=== PATIENT | male | born 1955 | race Caucasian/White ===

== ENCOUNTER → 2017-09-03 | Outpatient (CLI) | payer OTHER ==
[~2017-09-03] MED LIST: BACL20 PO; DOCU100 PO; GABA400 PO; GLYCAS PR; LIDO700A20 TOP; Lovenox100 MG/1 M SC; Mucinex600 MG PO; Norco 5-325 Ta1 EACH PO; Percocet 5-3251 EACH PO; Pseudoephedrine30 MG PO; WARF6 PO
[2017-09-05 14:17] LABS: Stool Occult Bld Immuno 1 Negative (NEGATIVE)
== END ==
LOC: LAB EV 19:00 → LAB SHORT 19:00
PROVIDERS: Internal Medicine
DX: Z12.11 Encounter for screening for malignant neoplasm of colon (principal)
CPT/HCPCS: G0328

== ENCOUNTER → 2017-12-21 | Outpatient (CLI) | payer OTHER | LOC: LAB EV 11:37 → LAB SHORT 11:37 | DX: N39.0 Urinary tract infection, site not specified (principal) | CPT/HCPCS: 87077; 87086; 87186 ==

== ENCOUNTER 2019-04-20 23:23 | Observation (INO) | payer OTHER ==
[~2019-04-20] VITALS: Ht 167.6 cm; Wt 113.3 kg
[2019-04-20] MEDS ORDERED: ELIQUIS5 MG PO (23:47)
[2019-04-21 00:12] LABS: BASOPHILS ABSOLUTE AUTO 0.05 K/mm3 (0.00-0.23); BASOPHILS PERCENT AUTO 1 % (0-2); EOSINOPHILS ABSOLUTE AUTO 0.13 K/mm3 (0.00-0.68); EOSINOPHILS PERCENT AUTO 2 % (0-6); Hematocrit 43.1 % (37.0-53.0); Hemoglobin 14.2 g/dL (13.5-17.5); IMMATURE GRAN ABSOLUTE AUTO 0.02 K/mm3 (0.00-0.10); IMMATURE GRAN PERCENT AUTO 0 % (0-1); LYMPHOCYTES PERCENT AUTO 22 % (21-46); MONOCYTES ABSOLUTE AUTO 0.58 K/mm3 (0.16-1.47); MONOCYTES PERCENT AUTO 7 % (4-13); Mean Corpuscular HGB 30.2 pg (26.0-34.0); Mean Corpuscular HGB Conc 32.9 g/dL (31.5-36.5); Mean Corpuscular Volume 92 fL (80-100); Mean Platelet Volume 10.5 fL (9.1-12.4); NEUTROPHILS ABSOLUTE AUTO 5.84 K/mm3 (1.96-9.15); NEUTROPHILS PERCENT AUTO 69 % (41-73); Platelet Count 280 K/mm3 (150-400); RDW Coefficient Variation 12.8 % (11.7-14.2); RDW Standard Deviation 42.9 fL (35.1-46.3); White Blood Cell Count 8.52 K/mm3 (4.00-11.30)
[2019-04-21 00:31] LABS: Alanine Aminotransfer (ALT/SGP 79 U/L (12-78); Albumin, Blood 3.7 g/dL (3.4-5.0); Albumin/Globulin Ratio 0.9 (0.8-1.8); Alk Phos 89 U/L (50-136); Anion Gap 7 mmol/L (6-16); Aspartate Aminotrans (AST/SGOT 33 U/L (12-37); Bilirubin, Total 0.3 mg/dL (0.1-1.0); Blood Urea Nitrogen 18 mg/dL (8-24); Bun/Creatinine Ratio 23.3 (12.0-20.0); CO2, Blood 25 mmol/L (21-32); Calcium, Blood 8.6 mg/dL (8.5-10.1); Chloride, Blood 108 mmol/L (98-108); Creatinine, Blood 0.77 mg/dL (0.60-1.20); Globulin, Blood 4.1 g/dL (2.2-4.0); Glomerular Filtration Rate >60 (60-); Glucose, Blood 158 mg/dL (70-99); Potassium, Blood 4.3 mmol/L (3.5-5.5); Sodium, Blood 140 mmol/L (136-145); Total Protein, Blood 7.8 g/dL (6.4-8.2)
--- NOTE | 2019-04-21 02:41 | NUR ---
PATIENT BEING ADMITTED FOR POSSIBLE GI BLEED. ARRIVED TO THE FLOOR VIA GURNEY, TRANSFERRED TO BED USING SLIDER SHEET. PATIENT REPORTS HE HAS BEEN HAVING CONSTIPATION DUE TO CHRONIC USE OF OXYCODONE. TONIGHT HE HAD A LARGE HARD BM AND AFTERWARDS HE NOTED TO HAVE BRIGHT RED BLOOD DRIPPING IN THE TOILET. UNABLE TO TELL HOW MUCH. NO BM SINCE THEN. PATIENT IS ON ELIQUIS FOR BLOOD CLOTS AND HAS HISTORY OF HEMMORROIDS. HE IS NOT SURE IF THAT COULD BE THE CAUSE OF IT. PATIENT IS A PARAPLEGIC FROM A FALL YEARS AGO, CAN NOT FEEL ANYTHING PAST HIS WAIST. HE IS STILL ABLE TO VOID AND USES THE URINAL. AND AT TIMES HE HAS BURNING LIKE SENSATIONS IN HIS LEGS AND FEET. PAIN ALSO FROM OLD NECK INJURY WELL. NO LUNG OR CARDIO ISSUES TO NOTE. GOT HIM SETTLED INTO THE ROOM, CALL LIGHT GIVEN, NO MEDS TO GIVE. PATIENT COVERED UP AND STARTED TO GO TO SLEEP.
--- NOTE | 2019-04-21 05:51 | NUR ---
SHIFT SUMMARY: CARMITA ARRIVED TO THE FLOOR AROUND 0230 THIS AM. HE WAS ADMITTED FOR POSSIBLE GI BLEED. HE HAS BEEN CONSTIPATED SINCE HE WAS PLACED ON NARCOTICS FOR CHRONIC BODY PAIN SINCE HIS INJURY. YESTERDAY HE HAD A BOWEL MOVEMENT NOTICED SOME BLOOD AFTERWARDS. HE IS ON ELEQUIS AND WAS CONCERNED SO HE CAME IN. SINCE HE HAS BEEN TO THE FLOOR HE HAS SLEPT, NO MEDS WERE GIVEN. NO ACTIVE BLEEDING NOTED. ALL LABS ARE WNL. VS ARE STABLE. HE HAS NOT HAD ANY ACUTE CHANGES SINCE HE WAS ADMITTED TO THE FLOOR. CALL LIGHT HAS REMAINED IN REACH.
[2019-04-21 12:33] LABS: Hematocrit 40.3 % (37.0-53.0); Hemoglobin 13.2 g/dL (13.5-17.5)
--- NOTE | 2019-04-21 19:31 | NUR ---
SHIFT SUMMARY: NO ACUTE CHANGES TO REPORT THIS SHIFT. PT A&O; CALM AND COOPERATIVE WITH CARE. PT PARAPLEGIC @ C-6; WHEELCHAIR BOUND AT BASELINE; MEDICATED FOR PAIN PER EMAR. GI CONSULT CANX R/T STABLE H&H; ADDITIONAL H&H SCHEDULED FOR 04/22. POSSIBLE D/C TO HOME 04/22. REPORT GIVEN TO ONCOMING RN.
--- NOTE | 2019-04-21 20:30 | NUR ---
NGHIA JUST HAD BM SOFT AND BROWN, NO BLOOD NOTED. STILL ON BED SNYDER HE THINKS HE MAY GO SOME MORE. URINAL ALSO EMPTIED AND PLACED BACK IN BETWEEN HIS LEGS LIKE HE REQUEST. STATES PAIN MEDS ARE DO AND WILL LIKE THEM WITH HIS NIGHT MEDS. 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 ENCOURAGED HIM TO CONTINUE TO WORK ON IT. CALL LIGHT IN REACH, WILL CONTINUE TO MONITOR.
--- NOTE | 2019-04-22 05:02 | NUR ---
SHIFT SUMMARY: NGHIA HAS DONE GOOD. BOWEL MOVEMENT TONIGHT WAS BROWN AND WITH NO SIGNS OF BLOOD. NO ABDOMINAL PAIN OR DISCOMFORT. NO NAUSEA NOTED. VS HAVE SHOWN A MILD TEMP OF 100.6 THAT CAME DOWN TO 99 AFTER PERCOCET. LUNG SOUNDS ARE CLEAR. LAB WORK IS NORMAL. NO SIGNS OF INFECTION NOTED. DENIES ANY CONGESTION OR COLD LIKE SYMPTOMS. UNSURE WHERE THE TEMP IS COMING FROM. REST OF VITALS NORMAL. APPETITE GOOD. VOIDING WELL. NO OTHER ACUTE CHANGES NOTE DTHIS SHIFT.
[2019-04-22 08:04] LABS: BASOPHILS ABSOLUTE AUTO 0.04 K/mm3 (0.00-0.23); BASOPHILS PERCENT AUTO 1 % (0-2); EOSINOPHILS ABSOLUTE AUTO 0.02 K/mm3 (0.00-0.68); EOSINOPHILS PERCENT AUTO 0 % (0-6); Hematocrit 40.9 % (37.0-53.0); Hemoglobin 13.3 g/dL (13.5-17.5); IMMATURE GRAN ABSOLUTE AUTO 0.01 K/mm3 (0.00-0.10); IMMATURE GRAN PERCENT AUTO 0 % (0-1); LYMPHOCYTES ABSOLUTE AUTO 1.23 K/mm3 (0.84-5.20); LYMPHOCYTES PERCENT AUTO 19 % (21-46); MONOCYTES ABSOLUTE AUTO 0.77 K/mm3 (0.16-1.47); MONOCYTES PERCENT AUTO 12 % (4-13); Mean Corpuscular HGB Conc 32.5 g/dL (31.5-36.5); Mean Corpuscular Volume 92 fL (80-100); Mean Platelet Volume 10.3 fL (9.1-12.4); NEUTROPHILS ABSOLUTE AUTO 4.49 K/mm3 (1.96-9.15); NEUTROPHILS PERCENT AUTO 68 % (41-73); Platelet Count 218 K/mm3 (150-400); RDW Coefficient Variation 13.1 % (11.7-14.2); RDW Standard Deviation 44.4 fL (35.1-46.3); Red Blood Cell Count 4.44 M/mm3 (4.30-5.90); White Blood Cell Count 6.56 K/mm3 (4.00-11.30)
--- NOTE | 2019-04-22 10:31 | NUR ---
REVIEW D'C INSTRUCTIONS. PER DR.STODDARD CARRILLORT JAN FRIDAY AND PATIENT AWARE. CORDINATOR WILL CALL THEM TODAY TO SET UP APPT AND IF THEY DO NOT THEY WILL CALL PCP TOMORROW. HAS F/U APPT IN 10 DAYS. AWARE CAN RETURN TO E.R. IF NEEDED. NO NEW MEDS. IN W/C. COIN MACHINE ASSEMBLER TOOK PATIENT TO POV W/. ANSWER ALL QUESTIONS.
== END 2019-04-22 10:31 | disposition home or self-care (01) ==
LOC: ER 23:23 → MEDS 23:25 → ER 04-21 01:07 → MEDS 04-21 01:07 → ER 04-21 02:28 → MEDS 04-21 02:34 → ENPENDDIS 04-22 09:17 → MEDS 04-22 10:31
PROVIDERS: Hospitalist; Physician Assistant; ADMIT Internal Medicine
DX: K62.5 Hemorrhage of anus and rectum (principal); K59.00 Constipation, unspecified; M54.9 Dorsalgia, unspecified; G89.29 Other chronic pain; G62.9 Polyneuropathy, unspecified; Z86.718 Personal history of other venous thrombosis and embolism; Z79.01 Long term (current) use of anticoagulants; Z79.899 Other long term (current) drug therapy
CPT/HCPCS: 36415; 80053; 85014; 85018; 85025; 93970; 99284; G0378

== ENCOUNTER 2020-01-25 17:39 | Inpatient (IN) | payer OTHER ==
[~2020-01-25] VITALS: Ht 167.6 cm; Wt 111.7 kg
[~2020-01-25 17:39] MED LIST changes: +ELIQUIS5 MG PO
[2020-01-25 18:02] LABS: Source, Urine Clean Catch
[2020-01-25 18:07] LABS: Bilirubin, Urine Neg (Neg); Blood, Urine 2+ (Neg); Glucose Qualitative, Urine Neg (Neg); Ketones, Urine Neg (Neg); Leukocyte Esterase, Urine 3+ (Neg); Nitrite, Urine Neg (Neg); Protein, Urine 2+ (Neg); Urobilinogen, Urine NORM (Normal)
[2020-01-25 18:14] LABS: BASOPHILS ABSOLUTE AUTO 0.03 K/mm3 (0.00-0.23); BASOPHILS PERCENT AUTO 0 % (0-2); EOSINOPHILS ABSOLUTE AUTO 0.02 K/mm3 (0.00-0.68); EOSINOPHILS PERCENT AUTO 0 % (0-6); Hematocrit 40.6 % (37.0-53.0); Hemoglobin 12.8 g/dL (13.5-17.5); IMMATURE GRAN ABSOLUTE AUTO 0.09 K/mm3 (0.00-0.10); IMMATURE GRAN PERCENT AUTO 1 % (0-1); LYMPHOCYTES ABSOLUTE AUTO 0.91 K/mm3 (0.84-5.20); LYMPHOCYTES PERCENT AUTO 5 % (21-46); MONOCYTES ABSOLUTE AUTO 1.53 K/mm3 (0.16-1.47); MONOCYTES PERCENT AUTO 8 % (4-13); Mean Corpuscular HGB Conc 31.5 g/dL (31.5-36.5); Mean Corpuscular Volume 86 fL (80-100); Mean Platelet Volume 10.2 fL (9.1-12.4); NEUTROPHILS ABSOLUTE AUTO 15.94 K/mm3 (1.96-9.15); NEUTROPHILS PERCENT AUTO 86 % (41-73); Platelet Count 277 K/mm3 (150-400); RDW Coefficient Variation 14.8 % (11.7-14.2); RDW Standard Deviation 46.5 fL (35.1-46.3); Red Blood Cell Count 4.74 M/mm3 (4.30-5.90); White Blood Cell Count 18.52 K/mm3 (4.00-11.30)
[2020-01-25 18:14] LABS: Appearance, Urine Hazy (Clear); Color, Urine Yellow (P-Yellow)
[2020-01-25 18:16] LABS: Bacteria Few /hpf; Squamous Epithelial Cells Few /hpf (Few); White Blood Cells, Urine 25-50 /hpf (0-5)
[2020-01-25 18:31] LABS: Alanine Aminotransfer (ALT/SGP 29 U/L (12-78); Albumin, Blood 3.5 g/dL (3.4-5.0); Albumin/Globulin Ratio 0.8 (0.8-1.8); Alk Phos 86 U/L (50-136); Anion Gap 5 mmol/L (6-16); Aspartate Aminotrans (AST/SGOT 17 U/L (12-37); Bilirubin, Total 0.7 mg/dL (0.1-1.0); Blood Urea Nitrogen 14 mg/dL (8-24); Bun/Creatinine Ratio 17.6 (12.0-20.0); CO2, Blood 30 mmol/L (21-32); Calcium, Blood 8.8 mg/dL (8.5-10.1); Chloride, Blood 103 mmol/L (98-108); Creatinine, Blood 0.79 mg/dL (0.60-1.20); Globulin, Blood 4.5 g/dL (2.2-4.0); Glomerular Filtration Rate >60 (60-); Glucose, Blood 146 mg/dL (70-99); Sodium, Blood 138 mmol/L (136-145)
[2020-01-25] MEDS ORDERED: BUPIVACAIN IJ (19:35)
[2020-01-25] MEDS ORDERED: METF500 (19:37)
[2020-01-25] MEDS ORDERED: DULO60 PO (22:58)
[2020-01-26 03:35] LABS: BASOPHILS ABSOLUTE AUTO 0.04 K/mm3 (0.00-0.23); BASOPHILS PERCENT AUTO 0 % (0-2); EOSINOPHILS ABSOLUTE AUTO 0.02 K/mm3 (0.00-0.68); EOSINOPHILS PERCENT AUTO 0 % (0-6); Hematocrit 38.9 % (37.0-53.0); Hemoglobin 11.8 g/dL (13.5-17.5); IMMATURE GRAN PERCENT AUTO 1 % (0-1); LYMPHOCYTES PERCENT AUTO 6 % (21-46); MONOCYTES ABSOLUTE AUTO 2.38 K/mm3 (0.16-1.47); MONOCYTES PERCENT AUTO 12 % (4-13); Mean Corpuscular HGB 26.9 pg (26.0-34.0); Mean Corpuscular HGB Conc 30.3 g/dL (31.5-36.5); Mean Corpuscular Volume 89 fL (80-100); Mean Platelet Volume 10.2 fL (9.1-12.4); NEUTROPHILS ABSOLUTE AUTO 16.45 K/mm3 (1.96-9.15); NEUTROPHILS PERCENT AUTO 82 % (41-73); Platelet Count 223 K/mm3 (150-400); RDW Standard Deviation 49.3 fL (35.1-46.3); Red Blood Cell Count 4.38 M/mm3 (4.30-5.90); White Blood Cell Count 20.09 K/mm3 (4.00-11.30)
[2020-01-26 03:57] LABS: Anion Gap 5 mmol/L (6-16); Blood Urea Nitrogen 14 mg/dL (8-24); Bun/Creatinine Ratio 15.7 (12.0-20.0); CO2, Blood 27 mmol/L (21-32); Calcium, Blood 7.8 mg/dL (8.5-10.1); Chloride, Blood 103 mmol/L (98-108); Creatinine, Blood 0.89 mg/dL (0.60-1.20); Glomerular Filtration Rate >60 (60-); Glucose, Blood 136 mg/dL (70-99); Potassium, Blood 4.3 mmol/L (3.5-5.5); Sodium, Blood 135 mmol/L (136-145)
--- NOTE | 2020-01-26 05:56 | NUR ---
shift summary PT SLEEPING IN ROOM COMFORTABLY AT THIS TIME. NO ACUTE CHANGES IN STATUS SINCE ARRIVAL FROM ED. PT HAS BEEN MEDICATED TWICE FOR PAIN PER EMAR. DENIED ANY CP OR SOB. PT WAS PLACED ON 1-2L NC BY RESP THERAPY D/T SLIGHTLY LOWER SATS UPON ARRIVAL. PT NOW SATTING 95% ON 1.5L. NS INFUSING IN PIV AT 75ML/HR. PT SELF CATHS AT HOME. STRAIGHT CATH DONE THIS AM, PT VOIDED 290ML. PT ALSO HAD ONE INCONTINENT VOID PRIOR TO SELF CATH. DENIED OTHER NEEDS. PT RESTING COMFORTABLY AT THIS TIME. CALL LIGHT IN REACH.
--- NOTE | 2020-01-26 16:53 | NUR ---
SHIFT SUMMARY PT A&Ox3; CALM AND COOPERATIVE WITH CARE. PT RESTING IN BED. ASSIST WITH REPOSITIONING; REFUSES MOST OF THE TIME. PT REPORTS CHRONIC PAIN; MEDICATED PER SCHEDULED AND PRN ORDERS. PT ON 2L O2 VIA NC THIS AM, TITRATED TO RA, PT DESATURATES TO 85%; PT MAINTAINING >90% ON 1L O2 VIA NC. PT DENIES CHEST PAIN, NAUSEA AND DIZZINESS. PT RECEIVING IV ANTIBIOTICS. HYPOTENSIVE THIS AM; TRENDING UP. OTHER VSS. NO OTHER ACUTE CHANGES NOTED. WILL CONTINUE TO MONITOR UNITL REPORT GIVEN TO ONCOMING RN.
--- NOTE | 2020-01-27 08:00 | NUR ---
PT LAYING IN BED AWAKE A/OX3, PLEASANT AND COOPERATIVE WITH CARE, FOLLOWS COMMANDS WELL, REPORTS HE SLEPT OK LAST NIGHT, REPORTS PAIN 8/10 IN HIS LEGS, WILL GIVE HIM A PERCOCET WITH AM MEDS, HE ALSO HAS A PAIN PUMP, LUNGS ARE CLEAR DIM IN BASES, RESP EVEN AND UNLABORED, NO COUGH NOTED, HRR, TELE IN PLACE RUNNING SR PER MONITOR, SEE STRIP, 2+ EDEMA NOTED TO B/L LE, UNABLE TO MOVE LEGS, CAP REFILL <3SEC, VS STABLE, AFEBRILE, IV SITE IS CLEAR AND PATENT, BTX4, ABD FLAT SOFT NONTENDER, VOIDS VIA SELF CATH, SKIN C/W/D, MOVES UPPER BODY WELL, FOUZIA, CALL LIGHT IN REACH.
[2020-01-27 12:45] LABS: BASOPHILS ABSOLUTE AUTO 0.02 K/mm3 (0.00-0.23); BASOPHILS PERCENT AUTO 0 % (0-2); EOSINOPHILS ABSOLUTE AUTO 0.11 K/mm3 (0.00-0.68); EOSINOPHILS PERCENT AUTO 1 % (0-6); Hematocrit 36.4 % (37.0-53.0); Hemoglobin 11.1 g/dL (13.5-17.5); IMMATURE GRAN ABSOLUTE AUTO 0.06 K/mm3 (0.00-0.10); IMMATURE GRAN PERCENT AUTO 1 % (0-1); LYMPHOCYTES ABSOLUTE AUTO 1.32 K/mm3 (0.84-5.20); LYMPHOCYTES PERCENT AUTO 10 % (21-46); MONOCYTES ABSOLUTE AUTO 1.43 K/mm3 (0.16-1.47); MONOCYTES PERCENT AUTO 11 % (4-13); Mean Corpuscular HGB 27.1 pg (26.0-34.0); Mean Corpuscular HGB Conc 30.5 g/dL (31.5-36.5); Mean Corpuscular Volume 89 fL (80-100); Mean Platelet Volume 10.1 fL (9.1-12.4); NEUTROPHILS ABSOLUTE AUTO 9.74 K/mm3 (1.96-9.15); NEUTROPHILS PERCENT AUTO 77 % (41-73); Platelet Count 224 K/mm3 (150-400); RDW Standard Deviation 48.9 fL (35.1-46.3); White Blood Cell Count 12.68 K/mm3 (4.00-11.30)
--- NOTE | 2020-01-27 13:44 | NUR ---
pt was up to bathroom to try to have a bm, was unable even after a suppos. got him started on miralax, will give enema if needed. v.s. stable, no further needs at this time, call light in reach.
--- NOTE | 2020-01-27 14:28 | NUR ---
pt sleeping, will given meds when wakes up. call light in reach.
--- NOTE | 2020-01-27 18:06 | NUR ---
pt has not been able to move bowels yet. have offered him a enema, and started him on mom and miralax, no further changes. call light in reach.
[2020-01-28 04:31] LABS: Hematocrit 32.8 % (37.0-53.0); Hemoglobin 10.1 g/dL (13.5-17.5); Mean Corpuscular HGB 26.9 pg (26.0-34.0); Mean Corpuscular HGB Conc 30.8 g/dL (31.5-36.5); Mean Corpuscular Volume 88 fL (80-100); Platelet Count 242 K/mm3 (150-400); RDW Coefficient Variation 14.9 % (11.7-14.2); RDW Standard Deviation 47.9 fL (35.1-46.3); Red Blood Cell Count 3.75 M/mm3 (4.30-5.90); White Blood Cell Count 13.56 K/mm3 (4.00-11.30)
--- NOTE | 2020-01-28 06:02 | NUR ---
SHIFT SUMMARY PT SLEEPING IN ROOM COMFORTABLY AT THIS TIME. NO ACUTE CHANGES IN STATUS T/O NIGHT. PT SLEPT WELL AND DENIED NEEDS T/O NIGHT. PT DID NOT ASK FOR ANY PAIN MEDS T/O NIGHT. SATS >92% ON RA. PT GOT UP ONCE TO BSC WITH SLIDER BOARD TO ATTEMPT BM. PT REPORTS LOTS OF FLATULENCE BUT NO BM OF YET. OFFERED FLEET ENEMA, PT DECLINED AT THIS TIME. CALL LIGHT IN REACH.
--- NOTE | 2020-01-28 18:34 | NUR ---
PATIENT'S BP TRENDED UPWARD THIS SHIFT, PATIENT DENIED CHEST PAIN. MAINTENANCE FLUIDS DISCONTINUED, IV LASIX GIVEN PER DR. SALINAS. COPMLAINED OF CHRONIC LOWBACK AND LEG PAIN. BLOOD SUGAR WNL, NO INSULIN NEEDED. PATIENT WAS ABLE TO PASS GAS MOST OF SHIFT, ABDOMINAL XRAY SHOWED NO SIGNS OF BOWEL OBSTRUCTION, PATIENT ABLE TO HAVE MEDIUM FORMED BOWEL MOVEMENT END OF THIS SHIFT.
--- NOTE | 2020-01-29 00:44 | NUR ---
Patient arrived from PCU 13 to room 313 on medical floor. A&OX4, transferred from wheelchair with slideboard without difficulty.
--- NOTE | 2020-01-29 04:06 | NUR ---
Patient converted to A Fib RVR in the 150's per PCU air technician at 0355. Call placed to night hospitalist. By 0405, A Fib rate is 140's 150's. Orders for lopressor received. will administer stat.
[2020-01-29 05:23] LABS: BASOPHILS ABSOLUTE AUTO 0.04 K/mm3 (0.00-0.23); BASOPHILS PERCENT AUTO 0 % (0-2); EOSINOPHILS ABSOLUTE AUTO 0.18 K/mm3 (0.00-0.68); EOSINOPHILS PERCENT AUTO 2 % (0-6); Hematocrit 35.7 % (37.0-53.0); Hemoglobin 11.3 g/dL (13.5-17.5); IMMATURE GRAN ABSOLUTE AUTO 0.04 K/mm3 (0.00-0.10); IMMATURE GRAN PERCENT AUTO 0 % (0-1); LYMPHOCYTES ABSOLUTE AUTO 1.36 K/mm3 (0.84-5.20); LYMPHOCYTES PERCENT AUTO 13 % (21-46); MONOCYTES PERCENT AUTO 12 % (4-13); Mean Corpuscular HGB 26.7 pg (26.0-34.0); Mean Corpuscular HGB Conc 31.7 g/dL (31.5-36.5); Mean Corpuscular Volume 84 fL (80-100); Mean Platelet Volume 10.4 fL (9.1-12.4); NEUTROPHILS PERCENT AUTO 73 % (41-73); Platelet Count 291 K/mm3 (150-400); RDW Coefficient Variation 14.7 % (11.7-14.2); RDW Standard Deviation 45.2 fL (35.1-46.3); Red Blood Cell Count 4.24 M/mm3 (4.30-5.90); White Blood Cell Count 10.32 K/mm3 (4.00-11.30)
[2020-01-29 05:42] LABS: Albumin, Blood 2.8 g/dL (3.4-5.0); Anion Gap 7 mmol/L (6-16); Blood Urea Nitrogen 12 mg/dL (8-24); Bun/Creatinine Ratio 17.5 (12.0-20.0); CO2, Blood 30 mmol/L (21-32); Calcium, Blood 9.4 mg/dL (8.5-10.1); Chloride, Blood 102 mmol/L (98-108); Creatinine, Blood 0.69 mg/dL (0.60-1.20); Glomerular Filtration Rate >60 (60-); Glucose, Blood 128 mg/dL (70-99); Phosphorus, Blood 2.7 mg/dL (2.5-4.9); Potassium, Blood 3.5 mmol/L (3.5-5.5); Sodium, Blood 139 mmol/L (136-145)
--- NOTE | 2020-01-29 06:06 | NUR ---
REGULATORY SUBMISSIONS ASSOCIATE SUMMARY Patient arrived from PCU just after 0100. Pain was 8/10 at that time, and Q6 PRN percocet was given per emar. Around 0350, patient converted into A Fib in the 150's. was notified and 2 - 5mg doses of Lopressor were given 30 minutes apart. First dose brought rate down to the 90'105 range going back and forth between SR and AF. The following dose was given because rate began creeping into the 120's A Fib again. Currently, patient is primarily SR between 90 and 100. Patient is unsure of the status of his pain pump, and was thinking his medication may have been increased without his knowledge. Phone numbers for [facility] are in pocket in from of chart. [place] and he says he was told by rep from the clinic that we (this [facility]) could adjust it or remove medications. Will make sure oncoming RN is aware of situation. Patient is voiding large quantities of urine per night time urinal. Urine is clear, odorless and yellow.
--- NOTE | 2020-01-29 17:09 | NUR ---
Echocardiogram completed.
--- NOTE | 2020-01-29 18:38 | NUR ---
SHIFT SUMMARY- PT IS A/O, PLESANT AND COOPERATIVE. HE IS RECIEVING PAIN MEDICATION NEEDED. HE IS EATING AND DRINKING WELL. PT STRAIGHT CATH HIMSELF. HE RECIEVED AN ECO AND AN EKG TODAY. VIA TELLE HE WAS HAVING ESCAPED BEATS AND PVC AND CONVERTED TO SINUS AT APPROX 1300 TODAY.
[2020-01-30] MEDS ORDERED: METO25ER PO (12:26)
[2020-01-30] MEDS ORDERED: CEFD300 PO (12:26)
--- NOTE | 2020-01-30 15:04 | NUR ---
PT DISCHARGED FROM THE UNIT. IV REMOVED. DISCHARGE INSTRUCTIONS REVIEWED. MEDICATONS FAXED TO [facility]. INSTRUCTED ON SCHEDULING FOLLOW UP APTS
== END 2020-01-30 13:55 | disposition home or self-care (01) | DRG 698 ==
LOC: ER 17:39 → PCU 22:17 → MEDS 01-29 00:45
PROVIDERS: Emergency Medicine; Family Medicine; Internal Medicine; Nurse Practitioner Acute Care; ADMIT Internal Medicine
DX: T83.518A Infection and inflammatory reaction due to other urinary catheter, initial encounter (principal); A41.59 Other Gram-negative sepsis; G82.20 Paraplegia, unspecified; N39.0 Urinary tract infection, site not specified; G89.29 Other chronic pain; M54.9 Dorsalgia, unspecified; E66.9 Obesity, unspecified; Z68.38 Body mass index [BMI] 38.0-38.9, adult; N31.9 Neuromuscular dysfunction of bladder, unspecified; I48.0 Paroxysmal atrial fibrillation; K59.03 Drug induced constipation; T40.605A Adverse effect of unspecified narcotics, initial encounter; Y92.9 Unspecified place or not applicable; Z86.718 Personal history of other venous thrombosis and embolism; E11.40 Type 2 diabetes mellitus with diabetic neuropathy, unspecified; Z97.8 Presence of other specified devices; Z79.84 Long term (current) use of oral hypoglycemic drugs; S14.109S Unspecified injury at unspecified level of cervical spinal cord, sequela
CPT/HCPCS: 36415; 71046; 72129; 72132; 74018; 76705; 80048; 80053; 80069; 81001; 82947; 83605; 85025; 85027; 87040; 87077; 87086; 87186; 93005; 93010; 93306; 94762; 96365; 96375; 99284-25; A9270; A9270-GY; J0696; J1170; J1940; J1956; J2405; J7030; Q9967

== ENCOUNTER 2020-03-08 08:38 | Inpatient (IN) | payer OTHER ==
[~2020-03-08] VITALS: Ht 167.6 cm; Wt 105.6 kg
[~2020-03-08 08:38] MED LIST changes: +BUPIVACAIN IJ; +CEFD300 PO; +DULO60 PO; +METF500; +METO25ER PO
[2020-03-08 10:05] LABS: Chloride (POC) 102 mmol/L (98-108); Creatinine (POC) 1.7 mg/dL (0.8-1.3); Glucose (ISTAT POC) 127 mg/dL (70-99); Hemoglobin (POC) 9.9 g/dL (13.5-17.5); Potassium (POC) 4.8 mmol/L (3.5-5.5); Sodium (POC) 138 mmol/L (135-148); Total CO2 (POC) 25 mmol/L (21-32)
[2020-03-08 10:55] LABS: BASOPHILS ABSOLUTE AUTO 0.05 K/mm3 (0.00-0.23); BASOPHILS PERCENT AUTO 1 % (0-2); EOSINOPHILS ABSOLUTE AUTO 0.11 K/mm3 (0.00-0.68); EOSINOPHILS PERCENT AUTO 1 % (0-6); Hematocrit 29.9 % (37.0-53.0); IMMATURE GRAN ABSOLUTE AUTO 0.04 K/mm3 (0.00-0.10); IMMATURE GRAN PERCENT AUTO 0 % (0-1); LYMPHOCYTES ABSOLUTE AUTO 1.66 K/mm3 (0.84-5.20); LYMPHOCYTES PERCENT AUTO 18 % (21-46); MONOCYTES ABSOLUTE AUTO 0.64 K/mm3 (0.16-1.47); MONOCYTES PERCENT AUTO 7 % (4-13); Mean Corpuscular HGB 26.3 pg (26.0-34.0); Mean Corpuscular HGB Conc 30.1 g/dL (31.5-36.5); Mean Corpuscular Volume 87 fL (80-100); Mean Platelet Volume 10.2 fL (9.1-12.4); NEUTROPHILS ABSOLUTE AUTO 6.53 K/mm3 (1.96-9.15); NEUTROPHILS PERCENT AUTO 72 % (41-73); Platelet Count 318 K/mm3 (150-400); RDW Coefficient Variation 15.2 % (11.7-14.2); RDW Standard Deviation 49.3 fL (35.1-46.3); Red Blood Cell Count 3.42 M/mm3 (4.30-5.90); White Blood Cell Count 9.03 K/mm3 (4.00-11.30)
[2020-03-08 11:12] LABS: International Normalized Ratio 1.04; Prothrombin Time Results 11.1 Sec (9.7-11.5)
[2020-03-08 11:15] LABS: Albumin, Blood 3.1 g/dL (3.4-5.0); Albumin/Globulin Ratio 0.8 (0.8-1.8); Bilirubin, Total 0.3 mg/dL (0.1-1.0); Bun/Creatinine Ratio 17.6 (12.0-20.0); Calcium, Blood 8.8 mg/dL (8.5-10.1); Creatinine, Blood 1.48 mg/dL (0.60-1.20); Globulin, Blood 3.8 g/dL (2.2-4.0); Potassium, Blood 4.9 mmol/L (3.5-5.5); Total Protein, Blood 6.9 g/dL (6.4-8.2)
[2020-03-08] MEDS ORDERED: ELIQUIS5 M3 PO (12:18)
[2020-03-08] MEDS ORDERED: OXYC5 PO (12:18)
[2020-03-08] MEDS ORDERED: NEURONTIN400 M1 PO (12:18)
[2020-03-08] MEDS ORDERED: METOPROLOL SUCC25 MG PO (12:18)
[2020-03-08] MEDS ORDERED: BACL20 PO (12:18)
[2020-03-08] MEDS ORDERED: LISI20 PO (12:19)
[2020-03-08] MEDS ORDERED: DULOXETINE HCL60 M1 PO (12:19)
[2020-03-08] MEDS ORDERED: METFORMIN HCL1000 M5 PO (12:19)
[2020-03-08 13:28] LABS: Source, Urine Catheter
[2020-03-08 13:55] LABS: Appearance, Urine Clear (Clear); Bilirubin, Urine Neg (Neg); Blood, Urine Neg (Neg); Color, Urine Yellow (P-Yellow); Glucose Qualitative, Urine Neg (Neg); Ketones, Urine Neg (Neg); Leukocyte Esterase, Urine 1+ (Neg); Nitrite, Urine Neg (Neg); Protein, Urine Neg (Neg); Urobilinogen, Urine NORM (Normal)
[2020-03-08 14:18] LABS: Hyaline Casts Rare /lpf (0-2); Red Blood Cells, Urine 0-2 /hpf (0-2); Squamous Epithelial Cells Few /hpf (Few); White Blood Cells, Urine 0-2 /hpf (0-5)
[2020-03-08 14:38] LABS: Hematocrit 27.3 % (37.0-53.0); Hemoglobin 8.5 g/dL (13.5-17.5)
[2020-03-08 15:58] LABS: Bacteria Few /hpf
[2020-03-08 20:48] LABS: Hematocrit 28.3 % (37.0-53.0); Hemoglobin 8.6 g/dL (13.5-17.5)
--- NOTE | 2020-03-08 22:28 | NUR ---
PATIENT WAS ON THE COMMODE AND HAD A BLOOD PRESSURE OF 68/44 WHILE ON THE COMMODE. PRINT COLOR OPERATOR AND THIS RN ASSISTED THE PATIENT BACK INTO BED AND RE-TOOK HIS BLOOD PRESSURE AND IT HAD COME UP TO 101/56. IN THE COMMODE WAS A LARGE AMOUNT OF WHAT APPEARED TO BE CONGEALED BLOOD. THIS RN CONTACTED THE LOCOMOTIVE ENGINEER DIESEL PHYSICIAN, DR KAHN, AND NOTIFIED HIM OF THE SITUATION. DR KAHN ORDERED A STAT CBC AND VITALS Q4 HOURS. WILL CONTINUE TO MONITOR.
[2020-03-08 22:43] LABS: BASOPHILS ABSOLUTE AUTO 0.04 K/mm3 (0.00-0.23); BASOPHILS PERCENT AUTO 1 % (0-2); EOSINOPHILS ABSOLUTE AUTO 0.15 K/mm3 (0.00-0.68); EOSINOPHILS PERCENT AUTO 2 % (0-6); Hematocrit 27.5 % (37.0-53.0); Hemoglobin 8.5 g/dL (13.5-17.5); IMMATURE GRAN ABSOLUTE AUTO 0.02 K/mm3 (0.00-0.10); IMMATURE GRAN PERCENT AUTO 0 % (0-1); LYMPHOCYTES ABSOLUTE AUTO 2.15 K/mm3 (0.84-5.20); LYMPHOCYTES PERCENT AUTO 25 % (21-46); MONOCYTES ABSOLUTE AUTO 0.73 K/mm3 (0.16-1.47); MONOCYTES PERCENT AUTO 9 % (4-13); Mean Corpuscular HGB 27.1 pg (26.0-34.0); Mean Corpuscular HGB Conc 30.9 g/dL (31.5-36.5); Mean Corpuscular Volume 88 fL (80-100); NEUTROPHILS ABSOLUTE AUTO 5.46 K/mm3 (1.96-9.15); NEUTROPHILS PERCENT AUTO 64 % (41-73); Platelet Count 323 K/mm3 (150-400); RDW Coefficient Variation 15.1 % (11.7-14.2); RDW Standard Deviation 48.5 fL (35.1-46.3); Red Blood Cell Count 3.14 M/mm3 (4.30-5.90); White Blood Cell Count 8.55 K/mm3 (4.00-11.30)
[2020-03-09 02:35] LABS: Hematocrit 27.2 % (37.0-53.0); Hemoglobin 8.4 g/dL (13.5-17.5)
[2020-03-09 02:53] LABS: Alanine Aminotransfer (ALT/SGP 24 U/L (12-78); Albumin/Globulin Ratio 0.8 (0.8-1.8); Alk Phos 73 U/L (50-136); Anion Gap 3 mmol/L (6-16); Aspartate Aminotrans (AST/SGOT 18 U/L (12-37); Bilirubin, Total 0.2 mg/dL (0.1-1.0); Blood Urea Nitrogen 22 mg/dL (8-24); Bun/Creatinine Ratio 21.2 (12.0-20.0); CO2, Blood 30 mmol/L (21-32); Calcium, Blood 8.8 mg/dL (8.5-10.1); Chloride, Blood 109 mmol/L (98-108); Creatinine, Blood 1.04 mg/dL (0.60-1.20); Globulin, Blood 3.7 g/dL (2.2-4.0); Glomerular Filtration Rate >60 (60-); Glucose, Blood 136 mg/dL (70-99); Potassium, Blood 4.5 mmol/L (3.5-5.5); Sodium, Blood 142 mmol/L (136-145); Total Protein, Blood 6.7 g/dL (6.4-8.2)
--- NOTE | 2020-03-09 07:26 | NUR ---
SHIFT SUMMARY PATIENT ALERT AND ORIENTED. PATIENT HAD EPISODES OF LOW BP WITH DIZZINESS, ESPECIALLY WHEN HE WAS ON THE COMMODE HAVING A BOWEL MOVEMENT. BP CURRENTLY BACK TO NORMAL. PATIENT MEDICATED PER EMAR FOR PAIN HE HAS PERIPHERAL NEUROPATHY. PT COMPLAINED OF CONSTIPATION AND ASKED IF HE COULD HAVE A SUPPOSITORY ORDERED, CALLED DR RUGGIERO AND HE ORDERED DULCOLAX HI. IV PATENT AND INFUSING WITH NORMAL SALINE AT 100 ML/HR. BED IN LOWEST POSITION WITH WHEELS LOCKED. CALL LIGHT WITHIN REACH. REPORT GIVEN TO ONCOMING RN.
[2020-03-09 09:15] LABS: Hemoglobin 8.6 g/dL (13.5-17.5)
[2020-03-09 11:39] LABS: Influenza A, PCR Negative (NEGATIVE); Influenza B, PCR Negative (NEGATIVE); Resp Syncytial Virus, PCR Negative (NEGATIVE); SARS-Cov-2 (COVID-19) PCR, MMC Negative (NEGATIVE)
--- NOTE | 2020-03-09 17:39 | NUR ---
SHIFT SUMMARY PATIENT ALERT AND ORIENTED THROUGHOUT THIS SHIFT. PATIENT COOPERATIVE WITH CARE. PATIENT IS PARAPLEGIC. RECTAL TUBE PLACED THIS AM FOR PATIENT'S GOLYTELY PREPARATION. PATIENT COMPLETED THE GOLYTELY THIS AFTERNOON AND IS CURRENTLY AWAITING HIS COLONOSCOPY. PATIENT MEDICATED FOR CHRONIC PAIN THROUGHOUT THIS SHIFT. PATIENT'S IN THE ROOM THROUGHOUT THIS AFTERNOON.
--- NOTE | 2020-03-09 19:24 | NUR ---
PT TRANSFERED TO [facility] VIA GURNY FROM [facility]. History, Chart, Medications and Allergies reviewed before start of procedure. Lungs clear T/O to Auscultation. Patient confirms NPO status and agrees with scheduled surgery. Pre-Op teaching done. Pt verbalizes understanding.
--- NOTE | 2020-03-09 19:34 | NUR ---
03/09/201933 SAMIRA MCFARLAND History, Chart, Medications and Allergies reviewed before start of procedure. 3-LEAD EKG REVIEWED WITH PHYSICIAN PRIOR TO START OF PROCEDURE. O2 VIA N/C INTACT THROUGHOUT SEDATION/PROCEDURE. MONITOR INTACT WITH CONTINUOUS PULSE OXIMETRY AND INTERMITTENT BP. PATIENT DETERMINED TO BE ASA APPROPRIATE FOR PROPOFOL SEDATION PRIOR TO START OF PROCEDURE BY DR. ABRAMS
--- NOTE | 2020-03-10 00:17 | NUR ---
03/09/200 RETURNED FROM COLONOSCOPY VIA GUERNEY AND SLID TO BED. TALKATIVE AND CHEERFUL. HELPS WITH TURNING EVEN THOUGH PARAPLEGIC. VITALS STABLE AND FLUIDS GIVEN TO DRINK.
--- NOTE | 2020-03-10 03:02 | NUR ---
03/10/20 0255 PAIN PILL DROPPED BY PT ONTO BED BUT RN AND PT UNABLE TO FIND WHITE PILL IN WHITE LINEN. ANOTHER PILL GIVEN FOR PAIN.
--- NOTE | 2020-03-10 06:13 | NUR ---
03/10/20 0600 AWAKE FOR AM BLOOD SUGAR CHECK AND EMPTYING HIS "URINE BOTTLE". VOIDING WELL. VITALS STABLE. MEDICATED FOR STARR. LEG PAIN PER MAR. NO RECTAL BLEEDING NOTED. FRUSTRATED WITH PAIN PUMP HE HAS AND PLANS TO TALK WITH MD TODAY ABOUT IT.
[2020-03-10 06:37] LABS: Hematocrit 24.7 % (37.0-53.0); Hemoglobin 7.8 g/dL (13.5-17.5)
--- NOTE | 2020-03-10 08:20 | NUR ---
FULL LIQUID DIET ORDERED AT PATIENT REQUEST.
--- NOTE | 2020-03-10 14:42 | NUR ---
HOLDING DC PER DR. HERNANDEZ. SPOKE WITH HER ABOUT PATIENT NOT FEELING READY TO GO HOME TODAY AND THAT DR. ABRAMS TOLD HIM THAT HE WOULD BE STAYING ANOTHER NIGHT.
--- NOTE | 2020-03-10 17:25 | NUR ---
PATIENT A/OX4. ABLE TO WORK WITH PT TODAY AND IS ABLE TO STAND AND TRANSFER WITH GB, FWW AND ASSIST. PATIENT REPORTS SEVERE BACK AND BLE PAIN. MORPHINE PAIN PUMP IN PLACE WHICH PATIENT STATES "DOESN'T WORK" AND HAS MADE HIS SYMPTOMS WORSE SINCE PLACE. PERCOCET AND TRAMADOL GIVEN WITH MINIMAL RELIEF. PATIENT STRAIGHT CATHS PRN AT HOME AND HAS BEEN VOIDING WELL IN URINAL HERE. BLOOD SUGARS HAVE BEEN D/C'D AND PATIENT IS TOLERATING ADA, LOW NA+ DIET. DC ORDERS PLACED TODAY, BUT DR. ABRAMS WANTED PATIENT TO STAY ANOTHER NIGHT. PATIENT PLEASANT AND COOPERATIVE WITH SHIFT.
[2020-03-11 04:47] LABS: Hematocrit 26.9 % (37.0-53.0); Hemoglobin 8.1 g/dL (13.5-17.5)
--- NOTE | 2020-03-11 06:20 | NUR ---
SHIFT SUMMARY PATIENT ALERT AND ORIENTED. MEDICATED TWICE PER EMAR FOR PAIN TO MINIMAL EFFECTIVENESS. PATIENT WAS ABLE TO GET SOME FAIRLY GOOD SLEEP OVERNIGH THOUGH. PATIENT STRAIGHT CATHED PER REQUEST ONCE OVERNIGHT. IV PATENT AND FLUSHED. BED IN LOWEST POSITION WITH WHEELS LOCKED. CALL LIGHT WITHIN REACH. REPORT GIVEN TO ONCOMING RN.
[2020-03-11] MEDS ORDERED: DOCUZEN 8.6-501 EACH PO (11:20)
--- NOTE | 2020-03-11 12:30 | NUR ---
PATIENT D/C'D TO HOME. RX MEDICATIONS FAXED TO [facility] IN [place]. PATIENT TO FOLLOW UP WITH DR. FLORES IN 1 WEEK. DC INSTRUCTIONS AND EDUCATION DISCUSSED WITH PATIENT AND COPY PROVIDED. PATIENT DENIES ANY FURTHER QUESTIONS OR CONCERNS.
== END 2020-03-11 12:51 | disposition home or self-care (01) | DRG 393 ==
LOC: ER 08:38 → ERHOLD 11:58 → MEDS 11:58 → ENPENDDIS 03-10 14:51 → MEDS 03-11 12:51
PROVIDERS: Emergency Medicine; Family Medicine; Internal Medicine Gastroenterology; Nurse Practitioner Acute Care; ADMIT Internal Medicine
PROC: 0DBP8ZX Excision of Rectum, Via Natural or Artificial Opening Endoscopic, Diagnostic (ICD-10-PCS; 2020-03-09)
PROC: 0DBM8ZX Excision of Descending Colon, Via Natural or Artificial Opening Endoscopic, Diagnostic (ICD-10-PCS; 2020-03-09)
PROC: 0DBK8ZX Excision of Ascending Colon, Via Natural or Artificial Opening Endoscopic, Diagnostic (ICD-10-PCS; principal; 2020-03-09 16:45)
PROC: 0DBL8ZX Excision of Transverse Colon, Via Natural or Artificial Opening Endoscopic, Diagnostic (ICD-10-PCS; 2020-03-09 16:45)
DX: K64.8 Other hemorrhoids (principal); K57.91 Diverticulosis of intestine, part unspecified, without perforation or abscess with bleeding; G82.20 Paraplegia, unspecified; N17.9 Acute kidney failure, unspecified; F11.20 Opioid dependence, uncomplicated; D62 Acute posthemorrhagic anemia; E66.01 Morbid (severe) obesity due to excess calories; Z68.38 Body mass index [BMI] 38.0-38.9, adult; Z20.828 Contact with and (suspected) exposure to other viral communicable diseases; I48.0 Paroxysmal atrial fibrillation; N31.9 Neuromuscular dysfunction of bladder, unspecified; G89.4 Chronic pain syndrome; I77.810 Thoracic aortic ectasia; Z86.718 Personal history of other venous thrombosis and embolism; K59.03 Drug induced constipation; T40.2X5A Adverse effect of other opioids, initial encounter; Y92.230 Patient room in hospital as the place of occurrence of the external cause; K63.89 Other specified diseases of intestine
CPT/HCPCS: 0241U; 36415; 51701; 51798; 80047; 80053; 81001; 82947; 83735; 84100; 85014; 85018; 85025; 85610; 85730; 86850; 86900; 86901; 87086; 88305; 93005; 93010; 96360; 97110; 97116; 97162; 99285-25; A9270; A9270-GY; J2704; J7030; J7120

== ENCOUNTER 2020-03-13 05:51 | Emergency (ER) | payer OTHER ==
[~2020-03-13] VITALS: Ht 170.2 cm; Wt 99.8 kg
[~2020-03-13 05:51] MED LIST changes: +DOCUZEN 8.6-501 EACH PO; +DULOXETINE HCL60 M1 PO; +ELIQUIS5 M3 PO; +LISI20 PO; +METFORMIN HCL1000 M5 PO; +METOPROLOL SUCC25 MG PO; +NEURONTIN400 M1 PO; +OXYC5 PO
[2020-03-13] MEDS ORDERED: MORPHINE (06:40)
[2020-03-13 06:41] LABS: BASOPHILS ABSOLUTE AUTO 0.07 K/mm3 (0.00-0.23); BASOPHILS PERCENT AUTO 1 % (0-2); EOSINOPHILS ABSOLUTE AUTO 0.16 K/mm3 (0.00-0.68); EOSINOPHILS PERCENT AUTO 2 % (0-6); Hematocrit 26.7 % (37.0-53.0); Hemoglobin 8.5 g/dL (13.5-17.5); IMMATURE GRAN ABSOLUTE AUTO 0.03 K/mm3 (0.00-0.10); IMMATURE GRAN PERCENT AUTO 0 % (0-1); LYMPHOCYTES ABSOLUTE AUTO 1.85 K/mm3 (0.84-5.20); LYMPHOCYTES PERCENT AUTO 21 % (21-46); MONOCYTES ABSOLUTE AUTO 0.59 K/mm3 (0.16-1.47); MONOCYTES PERCENT AUTO 7 % (4-13); Mean Corpuscular HGB 27.4 pg (26.0-34.0); Mean Corpuscular HGB Conc 31.8 g/dL (31.5-36.5); Mean Corpuscular Volume 86 fL (80-100); Mean Platelet Volume 9.7 fL (9.1-12.4); NEUTROPHILS ABSOLUTE AUTO 5.96 K/mm3 (1.96-9.15); NEUTROPHILS PERCENT AUTO 69 % (41-73); Platelet Count 386 K/mm3 (150-400); RDW Coefficient Variation 15.1 % (11.7-14.2); RDW Standard Deviation 47.3 fL (35.1-46.3); White Blood Cell Count 8.66 K/mm3 (4.00-11.30)
[2020-03-13 06:57] LABS: Anion Gap 6 mmol/L (6-16); Blood Urea Nitrogen 9 mg/dL (8-24); Bun/Creatinine Ratio 10.8 (12.0-20.0); CO2, Blood 28 mmol/L (21-32); Calcium, Blood 8.7 mg/dL (8.5-10.1); Chloride, Blood 109 mmol/L (98-108); Creatinine, Blood 0.84 mg/dL (0.60-1.20); Glomerular Filtration Rate >60 (60-); Glucose, Blood 144 mg/dL (70-99); Potassium, Blood 3.8 mmol/L (3.5-5.5); Sodium, Blood 143 mmol/L (136-145)
== END 2020-03-13 07:32 | disposition home or self-care (01) ==
LOC: ER 05:51
PROVIDERS: Emergency Medicine
DX: M62.838 Other muscle spasm (principal); D64.9 Anemia, unspecified; E11.42 Type 2 diabetes mellitus with diabetic polyneuropathy; I48.91 Unspecified atrial fibrillation; Z97.8 Presence of other specified devices; Z86.718 Personal history of other venous thrombosis and embolism; Z79.899 Other long term (current) drug therapy; Z79.01 Long term (current) use of anticoagulants; Z88.1 Allergy status to other antibiotic agents; Z79.84 Long term (current) use of oral hypoglycemic drugs
CPT/HCPCS: 80048; 85025; 99283; A9270-GY

== ENCOUNTER 2020-03-14 19:16 | Emergency (ER) | payer OTHER ==
[~2020-03-14] VITALS: Ht 167.6 cm; Wt 108.9 kg
[~2020-03-14 19:16] MED LIST changes: +MORPHINE
[2020-03-14 19:45] LABS: Calcium, Ionized (POC) 1.18 mmol/L (1.10-1.46); Chloride (POC) 101 mmol/L (98-108); Creatinine (POC) 1.6 mg/dL (0.8-1.3); Glucose (ISTAT POC) 122 mg/dL (70-99); Hemoglobin (POC) 9.2 g/dL (13.5-17.5); Potassium (POC) 4.4 mmol/L (3.5-5.5); Sodium (POC) 138 mmol/L (135-148); Total CO2 (POC) 29 mmol/L (21-32)
[2020-03-14 19:55] LABS: BASOPHILS ABSOLUTE AUTO 0.08 K/mm3 (0.00-0.23); BASOPHILS PERCENT AUTO 1 % (0-2); EOSINOPHILS ABSOLUTE AUTO 0.35 K/mm3 (0.00-0.68); EOSINOPHILS PERCENT AUTO 4 % (0-6); Hematocrit 28.4 % (37.0-53.0); Hemoglobin 8.3 g/dL (13.5-17.5); IMMATURE GRAN ABSOLUTE AUTO 0.03 K/mm3 (0.00-0.10); IMMATURE GRAN PERCENT AUTO 0 % (0-1); LYMPHOCYTES ABSOLUTE AUTO 3.01 K/mm3 (0.84-5.20); LYMPHOCYTES PERCENT AUTO 32 % (21-46); MONOCYTES ABSOLUTE AUTO 0.85 K/mm3 (0.16-1.47); MONOCYTES PERCENT AUTO 9 % (4-13); Mean Corpuscular HGB 26.3 pg (26.0-34.0); Mean Corpuscular HGB Conc 29.2 g/dL (31.5-36.5); Mean Corpuscular Volume 90 fL (80-100); Mean Platelet Volume 9.6 fL (9.1-12.4); NEUTROPHILS ABSOLUTE AUTO 5.16 K/mm3 (1.96-9.15); NEUTROPHILS PERCENT AUTO 54 % (41-73); Platelet Count 384 K/mm3 (150-400); RDW Coefficient Variation 14.9 % (11.7-14.2); RDW Standard Deviation 49.1 fL (35.1-46.3); Red Blood Cell Count 3.15 M/mm3 (4.30-5.90); White Blood Cell Count 9.48 K/mm3 (4.00-11.30)
[2020-03-14 20:17] LABS: Albumin, Blood 3.2 g/dL (3.4-5.0); Albumin/Globulin Ratio 0.8 (0.8-1.8); Bilirubin, Total 0.2 mg/dL (0.1-1.0); Bun/Creatinine Ratio 9.1 (12.0-20.0); Calcium, Blood 8.7 mg/dL (8.5-10.1); Creatinine, Blood 1.43 mg/dL (0.60-1.20); Potassium, Blood 3.7 mmol/L (3.5-5.5); Total Protein, Blood 7.2 g/dL (6.4-8.2)
[2020-03-14 20:21] LABS: International Normalized Ratio 1.01; Prothrombin Time Results 10.8 Sec (9.7-11.5)
== END 2020-03-14 21:55 | disposition home or self-care (01) ==
LOC: ER 19:16
PROVIDERS: Emergency Medicine
DX: R42 Dizziness and giddiness (principal); E11.42 Type 2 diabetes mellitus with diabetic polyneuropathy; I48.91 Unspecified atrial fibrillation; Z87.19 Personal history of other diseases of the digestive system; Z88.1 Allergy status to other antibiotic agents; Z79.899 Other long term (current) drug therapy; Z79.84 Long term (current) use of oral hypoglycemic drugs; Z79.01 Long term (current) use of anticoagulants; Z86.718 Personal history of other venous thrombosis and embolism
CPT/HCPCS: 36415; 80047; 80053; 85014; 85025; 85610; 85730; 86850; 86900; 86901; 93005; 93010; 96360; 99284-25; J7030

== ENCOUNTER 2020-03-15 16:58 | Emergency (ER) | payer OTHER ==
[~2020-03-15] VITALS: Ht 167.6 cm; Wt 108.9 kg
[2020-03-15 17:57] LABS: Source, Urine Clean Catch
[2020-03-15 18:06] LABS: BASOPHILS ABSOLUTE AUTO 0.05 K/mm3 (0.00-0.23); BASOPHILS PERCENT AUTO 1 % (0-2); EOSINOPHILS ABSOLUTE AUTO 0.29 K/mm3 (0.00-0.68); EOSINOPHILS PERCENT AUTO 3 % (0-6); Hematocrit 28.1 % (37.0-53.0); Hemoglobin 8.6 g/dL (13.5-17.5); IMMATURE GRAN ABSOLUTE AUTO 0.04 K/mm3 (0.00-0.10); IMMATURE GRAN PERCENT AUTO 0 % (0-1); LYMPHOCYTES ABSOLUTE AUTO 2.12 K/mm3 (0.84-5.20); LYMPHOCYTES PERCENT AUTO 22 % (21-46); MONOCYTES ABSOLUTE AUTO 0.58 K/mm3 (0.16-1.47); MONOCYTES PERCENT AUTO 6 % (4-13); Mean Corpuscular HGB Conc 30.6 g/dL (31.5-36.5); Mean Corpuscular Volume 88 fL (80-100); Mean Platelet Volume 9.9 fL (9.1-12.4); NEUTROPHILS ABSOLUTE AUTO 6.73 K/mm3 (1.96-9.15); NEUTROPHILS PERCENT AUTO 69 % (41-73); Platelet Count 406 K/mm3 (150-400); RDW Coefficient Variation 14.7 % (11.7-14.2); RDW Standard Deviation 47.5 fL (35.1-46.3); Red Blood Cell Count 3.18 M/mm3 (4.30-5.90); White Blood Cell Count 9.81 K/mm3 (4.00-11.30)
[2020-03-15 18:19] LABS: Appearance, Urine Clear (Clear); Bilirubin, Urine Neg (Neg); Blood, Urine Neg (Neg); Color, Urine Yellow (P-Yellow); Glucose Qualitative, Urine Neg (Neg); Ketones, Urine Neg (Neg); Leukocyte Esterase, Urine 1+ (Neg); Nitrite, Urine Neg (Neg); Protein, Urine Neg (Neg); Urobilinogen, Urine NORM (Normal)
[2020-03-15 18:29] LABS: Alanine Aminotransfer (ALT/SGP 25 U/L (12-78); Albumin, Blood 3.3 g/dL (3.4-5.0); Albumin/Globulin Ratio 0.8 (0.8-1.8); Alk Phos 87 U/L (50-136); Anion Gap 6 mmol/L (6-16); Aspartate Aminotrans (AST/SGOT 18 U/L (12-37); Bilirubin, Total 0.2 mg/dL (0.1-1.0); Blood Urea Nitrogen 18 mg/dL (8-24); Bun/Creatinine Ratio 19.1 (12.0-20.0); CO2, Blood 25 mmol/L (21-32); Calcium, Blood 8.8 mg/dL (8.5-10.1); Chloride, Blood 104 mmol/L (98-108); Creatinine, Blood 0.94 mg/dL (0.60-1.20); Glomerular Filtration Rate >60 (60-); Glucose, Blood 94 mg/dL (70-99); Potassium, Blood 4.6 mmol/L (3.5-5.5); Sodium, Blood 135 mmol/L (136-145); Total Protein, Blood 7.3 g/dL (6.4-8.2)
[2020-03-15 18:36] LABS: Bacteria Rare /hpf; Red Blood Cells, Urine 0-2 /hpf (0-2); Squamous Epithelial Cells Rare /hpf (Few)
== END 2020-03-15 20:13 | disposition home or self-care (01) ==
LOC: ER 16:58
PROVIDERS: Physician Assistant
DX: E86.0 Dehydration (principal); E11.42 Type 2 diabetes mellitus with diabetic polyneuropathy; I48.91 Unspecified atrial fibrillation; Z79.84 Long term (current) use of oral hypoglycemic drugs; Z79.01 Long term (current) use of anticoagulants; Z79.899 Other long term (current) drug therapy; Z88.1 Allergy status to other antibiotic agents; Z86.73 Personal history of transient ischemic attack (TIA), and cerebral infarction without residual deficits
CPT/HCPCS: 36415; 80053; 81001; 85025; 87086; 96360; 96361; 99283-25; J7030

== ENCOUNTER 2020-11-27 09:59 | Day surgery (SDC) | payer OTHER ==
--- NOTE | 2020-11-27 12:22 | NUR ---
1220 PT HAS ZERO S/S OF DISTRESS........... ON LAST 15 MINUTES OF OBSERVATION
--- NOTE | 2020-11-27 12:42 | NUR ---
PT MONITORED Q 15 MINUTES DURING AND FOR 1 HOUR AFTER HIS INFUSION. NO COMPLAINTS. BP SLIGHTLY HIGHER AFTER INFUSION, PT REPORTS LABILE BP AT HOME AT TIMES. HE ALSO REPORTS THAT HE DID NOT TAKE ANY OF HIS AM MEDS THIS MORNING. PT DC'D VIA [employer] TO PRIVATE CAR.
== END 2020-11-27 12:42 | disposition home or self-care (01) ==
LOC: ATC 09:59
DX: U07.1 COVID-19 (principal); I10 Essential (primary) hypertension; E11.9 Type 2 diabetes mellitus without complications; Z79.01 Long term (current) use of anticoagulants; Z88.1 Allergy status to other antibiotic agents
CPT/HCPCS: 96365; Q0243

== ENCOUNTER → 2020-12-28 | Outpatient (CLI) | payer OTHER ==
[2020-12-28 17:13] LABS: Source, Urine Clean Catch
[2020-12-28 17:56] LABS: Appearance, Urine Clear (Clear); Bilirubin, Urine Neg (Neg); Blood, Urine Neg (Neg); Color, Urine Yellow (P-Yellow); Glucose Qualitative, Urine Neg (Neg); Ketones, Urine 1+ (Neg); Leukocyte Esterase, Urine 2+ (Neg); Nitrite, Urine Neg (Neg); Protein, Urine 1+ (Neg); Urobilinogen, Urine NORM (Normal)
[2020-12-28 18:26] LABS: Bacteria Few /hpf; Squamous Epithelial Cells Mod /hpf (Few)
== END | disposition home or self-care (01) ==
LOC: LAB SHORT 13:00
PROVIDERS: Internal Medicine
DX: N39.0 Urinary tract infection, site not specified (principal)
CPT/HCPCS: 81001; 87086

== ENCOUNTER → 2021-05-08 | Outpatient (CLI) | payer OTHER | END | disposition home or self-care (01) | LOC: LAB SHORT 15:31 | DX: N39.0 Urinary tract infection, site not specified (principal) | CPT/HCPCS: 87086 ==

== ENCOUNTER 2021-07-25 06:52 | Day surgery (SDC) | payer OTHER ==
[~2021-07-25 06:52] MED LIST changes: +GABA300 PO
--- NOTE | 2021-07-25 07:42 | NUR ---
07/25/21 0742 Renetta Knight IV TRANSFER FROM [facility]
--- NOTE | 2021-07-25 10:08 | NUR ---
07/25/21 1008 CAROLYN SOLORIO REPORT GIVEN TO SOLEDAD RIOJAS ON MEDICAL FLOOR. PT TRANSFERED VIA [facility] TO ROOM 327. PT ASSISTED WITH TRANSFER FROM [facility] TO HOSPITAL BED WITHOUT INCIDENT. CALL LIGHT PLACED WITHIN REACH.
--- NOTE | 2021-07-25 15:06 | NUR ---
07/25/21 1506 KOLBY PAZ EXTENT REACHED DISTAL TRANSVERSE PER DR. ABRAMS
== END 2021-07-25 09:10 | disposition home or self-care (01) ==
LOC: ORSCSDS 06:52
PROVIDERS: Internal Medicine Gastroenterology
PROC: 0DJD8ZZ Inspection of Lower Intestinal Tract, Via Natural or Artificial Opening Endoscopic (ICD-10-PCS; principal; 2021-07-25 08:00)
DX: D64.9 Anemia, unspecified (principal); Z86.010 Personal history of colon polyps; K57.30 Diverticulosis of large intestine without perforation or abscess without bleeding; K64.8 Other hemorrhoids; Z79.01 Long term (current) use of anticoagulants; Z79.899 Other long term (current) drug therapy
CPT/HCPCS: J2704; J7120

== ENCOUNTER 2021-10-29 15:57 | Observation (INO) | payer OTHER ==
[~2021-10-29] VITALS: Ht 167.6 cm; Wt 95.5 kg
[~2021-10-29 15:57] MED LIST changes: -GABA300 PO
[2021-10-29] MEDS ORDERED: [UNRECOGNIZED DRUG - OTHER] (16:32)
--- NOTE | 2021-10-29 19:09 | NUR ---
SHIFT SUMMARY: PT A/O X 4 ONE ASSIST PIVOT TX. PLEASANT AND COOPERATIVE. PT ADMISSION ASSESSMENTS COMPLETED. GOLYTELY STARTED. REPORTED TO ONCOMING RN POC.
[2021-10-29] MEDS ORDERED: FEROSUL325 M1 PO (20:11)
--- NOTE | 2021-10-30 06:12 | NUR ---
PT ADMITTED FOR COLONOSCOPY PREP. DR. ABRAMS OVERSEEING PROCEDURE. 1ST NIGHT OF PREP COMPLETE; 4000 mL GOLYTLY CONSUMED WITH EXPECTED RESULTS. STRAIT CATHETER CONNECTED TO DRAINAGE BAG, THIS IS PATIENT'S HOME ROUTINE. MEDICATED X2 WITH ROXINOL. PRESSURE ULCER NOTED ON RIGHT CALIX, DUE TO PATIENT'S LEG BRACE AND PATIENT'S LACK OF SENSATION TO LOWER EXTREMITIES. NO ISSUES NOTED THROUGHOUT SHIFT.
--- NOTE | 2021-10-30 16:51 | NUR ---
SHIFT SUMMARY PT AxOx4. PLEASANT AND COOPERATIVE WITH CARE. PT IS HERE FOR OVERNIGHT BOWEL PREP FOR COLONOSCOPY TOMORROW. PT IS PARAPLEGIC WITH ADEQUATE UPPER BODY STRENGTH TO ASSIST WITH TRANSFERS TO . PT SELF CATHS FOR NEUROGENIC BLADDER. PT GIVEN SECOND DOSE OF PREP THIS AM. PT HAD CLEAR LIQUID DIET FOR BREAKFAST & LUNCH AND SWITCHED TO WATER AND ICE ONLY AFTER. PT REPORTS CHRONIC PAIN x2. MEDICATED PER EMAR WITH REPORTED RELIEF. PT IS CURRENTLY RESTING IN BED WITH CALL LIGHT IN REACH. PT DESCRIBES HIS LAST BM "YELLOW WITH SOME PIECES OF STOOL STILL IN IT." VITALS REVIEWED. PT DENIES ANY NEEDS AT THIS TIME.
--- NOTE | 2021-10-31 04:45 | NUR ---
SHIFT SUMMARY NO ACUTE CHANGES TO PT CONDITION. PT CONTINUES TO SELF CATH. PT DRANK THE REST OF THE GOLYTELY. PT IS NPO. PT COMPLAINED OF LOWER BODY PAIN AND WAS MEDICATED PER EMAR. PT HAS NO COMPLAINTS AT THIS TIME. CALL LIGHT IS WITHIN HIS REACH.
== END 2021-10-31 15:06 | disposition home or self-care (01) ==
LOC: MEDS 15:57
PROVIDERS: ADMIT Internal Medicine Gastroenterology
PROC: 0DBM8ZX Excision of Descending Colon, Via Natural or Artificial Opening Endoscopic, Diagnostic (ICD-10-PCS; principal; 2021-10-31)
PROC: 0DBL8ZX Excision of Transverse Colon, Via Natural or Artificial Opening Endoscopic, Diagnostic (ICD-10-PCS; principal; 2021-10-31)
PROC: 0DBE8ZX Excision of Large Intestine, Via Natural or Artificial Opening Endoscopic, Diagnostic (ICD-10-PCS; principal; 2021-10-31)
PROC: 0DBK8ZX Excision of Ascending Colon, Via Natural or Artificial Opening Endoscopic, Diagnostic (ICD-10-PCS; principal; 2021-10-31)
DX: D12.2 Benign neoplasm of ascending colon (principal); D12.0 Benign neoplasm of cecum; D12.4 Benign neoplasm of descending colon; D12.3 Benign neoplasm of transverse colon; K63.89 Other specified diseases of intestine; K57.30 Diverticulosis of large intestine without perforation or abscess without bleeding; D50.9 Iron deficiency anemia, unspecified; K64.4 Residual hemorrhoidal skin tags; D64.9 Anemia, unspecified; D17.5 Benign lipomatous neoplasm of intra-abdominal organs; E11.51 Type 2 diabetes mellitus with diabetic peripheral angiopathy without gangrene; I48.0 Paroxysmal atrial fibrillation; I10 Essential (primary) hypertension; G82.54 Quadriplegia, C5-C7 incomplete; S14.155S Other incomplete lesion at C5 level of cervical spinal cord, sequela; X58.XXXS Exposure to other specified factors, sequela; Z87.19 Personal history of other diseases of the digestive system; Z88.1 Allergy status to other antibiotic agents; Z88.5 Allergy status to narcotic agent
CPT/HCPCS: A9270; G0378; J7040

== ENCOUNTER 2021-10-31 05:31 | Day surgery (SDC) | payer OTHER ==
[~2021-10-31] VITALS: Ht 167.6 cm; Wt 95.5 kg
[~2021-10-31 05:31] MED LIST changes: +FEROSUL325 M1 PO; +[UNRECOGNIZED DRUG - OTHER]
== END 2021-10-31 13:40 | disposition home or self-care (01) ==
LOC: ORSCSDS 05:31
PROVIDERS: Internal Medicine Gastroenterology
PROC: 0DBL8ZX Excision of Transverse Colon, Via Natural or Artificial Opening Endoscopic, Diagnostic (ICD-10-PCS; principal; 2021-10-31 12:00)
PROC: 0DBM8ZX Excision of Descending Colon, Via Natural or Artificial Opening Endoscopic, Diagnostic (ICD-10-PCS; principal; 2021-10-31 12:00)
PROC: 0DBH8ZX Excision of Cecum, Via Natural or Artificial Opening Endoscopic, Diagnostic (ICD-10-PCS; principal; 2021-10-31 12:00)
PROC: 0DBK8ZX Excision of Ascending Colon, Via Natural or Artificial Opening Endoscopic, Diagnostic (ICD-10-PCS; principal; 2021-10-31 12:00)
DX: D50.9 Iron deficiency anemia, unspecified (principal); Z86.010 Personal history of colon polyps; D12.2 Benign neoplasm of ascending colon; D12.0 Benign neoplasm of cecum; D12.3 Benign neoplasm of transverse colon; D12.4 Benign neoplasm of descending colon; K63.89 Other specified diseases of intestine; E66.01 Morbid (severe) obesity due to excess calories; I10 Essential (primary) hypertension; E11.9 Type 2 diabetes mellitus without complications; K57.30 Diverticulosis of large intestine without perforation or abscess without bleeding; K64.4 Residual hemorrhoidal skin tags; Z79.84 Long term (current) use of oral hypoglycemic drugs; Z79.899 Other long term (current) drug therapy
CPT/HCPCS: 88305; J0461; J2405; J2704; J7120

== ENCOUNTER 2021-11-09 06:51 | Day surgery (SDC) | payer OTHER ==
[~2021-11-09] VITALS: Ht 167.6 cm; Wt 98.5 kg
--- NOTE | 2021-11-09 09:31 | NUR ---
11/09/21 0931 ELKIN DE [place]ANT[place] 2 [employer] CONSULTANT HELPED PT TRANSFER TO [facility]
== END 2021-11-09 09:35 | disposition home or self-care (01) ==
LOC: ORSCSDS 06:51
PROVIDERS: Internal Medicine Gastroenterology
PROC: 0DJ08ZZ Inspection of Upper Intestinal Tract, Via Natural or Artificial Opening Endoscopic (ICD-10-PCS; principal; 2021-11-09 08:00)
DX: D50.9 Iron deficiency anemia, unspecified (principal); Z86.010 Personal history of colon polyps; I48.0 Paroxysmal atrial fibrillation; I10 Essential (primary) hypertension; Z86.718 Personal history of other venous thrombosis and embolism; G82.20 Paraplegia, unspecified; E11.9 Type 2 diabetes mellitus without complications; E66.01 Morbid (severe) obesity due to excess calories; Z68.35 Body mass index [BMI] 35.0-35.9, adult; Z79.01 Long term (current) use of anticoagulants; Z79.899 Other long term (current) drug therapy; K44.9 Diaphragmatic hernia without obstruction or gangrene; K22.70 Barrett's esophagus without dysplasia
CPT/HCPCS: 82947; J2370; J2704; J3010; J7120

== ENCOUNTER → 2021-11-22 | Outpatient (CLI) | payer OTHER | END | disposition home or self-care (01) | LOC: LAB SHORT 14:50 → PLD 14:50 | DX: C44.319 Basal cell carcinoma of skin of other parts of face (principal) | CPT/HCPCS: 88305 ==

== ENCOUNTER 2022-04-30 07:26 | Day surgery (SDC) | payer OTHER ==
[~2022-04-30] VITALS: Ht 167.6 cm; Wt 95.2 kg
[~2022-04-30 07:26] MED LIST changes: +ELIQUIS5 M2 PO; +FERSU300 PO; +GABA800 PO; +METF500 PO; +MIRALAX17 GM PO; +MYRBETRIQ50 MG PO; +NARCAN4 M1; +SENNA LAXATIVE8.6 MG PO
--- NOTE | 2022-04-30 09:20 | NUR ---
04/30/22 0920 CAROLYN SOLORIO 0.1MG OF EPI ADDED TO 10MLS OF BUPIVACAINE 0.25% TO CREATE A LOCAL SOLUTION OF BUPIVACAINE 0.25% WITH EPI 1:100,000. LOCAL POURED ONTO STERILE FIELD FOR USE DURING CASE.
--- NOTE | 2022-04-30 09:49 | NUR ---
04/30/22 0949 Tiffanie Batista DC'Rosaura AT 0949 SATS 100%.
--- NOTE | 2022-04-30 11:20 | NUR ---
04/30/22 1120 Cameron Butts PT'S O2 SUSTAINED BETWEEN 100% AND 93% IN STEP DOWN. HOWEVER, O2 PERIODICALLY WOULD DROP TO 90-92% FOR BRIEF PERIODS AND RETURN TO NORMAL LIMITS SPONTANEOUSLY. DR. MOE WAS CONSULTED ABOUT THE SITUATION AND APPROVED DISCHARGE WITH CURRENT VITALS/CONDITION. PT WAS ADVISED TO FOLLOW UP WITH PCP DAR REGARDING SLEEP APNEA.
== END 2022-04-30 10:55 | disposition home or self-care (01) ==
LOC: ORSCSDS 07:26
PROVIDERS: Otolaryngology
PROC: 0CBS8ZX Excision of Larynx, Via Natural or Artificial Opening Endoscopic, Diagnostic (ICD-10-PCS; principal; 2022-04-30 08:45)
DX: D10.7 Benign neoplasm of hypopharynx (principal); I10 Essential (primary) hypertension; G82.20 Paraplegia, unspecified; E11.42 Type 2 diabetes mellitus with diabetic polyneuropathy; Z79.84 Long term (current) use of oral hypoglycemic drugs; Z79.899 Other long term (current) drug therapy; Z79.01 Long term (current) use of anticoagulants
CPT/HCPCS: 82947; 88305; 88312; A9270; J0171; J1100; J2001; J2370; J2405; J2704; J3010; J7120

== ENCOUNTER 2022-07-12 12:20 | Day surgery (SDC) | payer OTHER ==
[~2022-07-12] VITALS: Ht 177.8 cm; Wt 95.2 kg
--- NOTE | 2022-07-12 14:41 | NUR ---
07/12/22 1440 Isaac Paz PROVIDED LIDOCAIANE 4% 5ML VIA UPDRAFT PRIOR TO PROCEDURE PER DR LAZO
== END 2022-07-12 15:35 | disposition home or self-care (01) ==
LOC: ORSCSDS 12:20
PROVIDERS: Internal Medicine Gastroenterology
PROC: 0DJ08ZZ Inspection of Upper Intestinal Tract, Via Natural or Artificial Opening Endoscopic (ICD-10-PCS; principal; 2022-07-12 13:45)
DX: D50.9 Iron deficiency anemia, unspecified (principal); I10 Essential (primary) hypertension; I48.91 Unspecified atrial fibrillation; G62.9 Polyneuropathy, unspecified; E66.01 Morbid (severe) obesity due to excess calories; Z68.41 Body mass index [BMI] 40.0-44.9, adult; E11.9 Type 2 diabetes mellitus without complications; Z79.84 Long term (current) use of oral hypoglycemic drugs; Z79.899 Other long term (current) drug therapy
CPT/HCPCS: 82947; J2001; J2704; J7120

== ENCOUNTER → 2023-04-02 | Outpatient (CLI) | payer OTHER ==
[~2023-04-02] MED LIST changes: +ADULT GLYCERIN1 EACH PR; +CONSTULOSE10 GM/155 PO; +PRAHYD1AE TOP; +SULTRIDS PO
[2023-04-02 18:50] LABS: Microalbumin, Random Urine 90.2 mg/L (0.000-20.000)
== END | disposition home or self-care (01) ==
LOC: LAB SHORT 13:52 → LAB 13:52
PROVIDERS: Internal Medicine
DX: E11.29 Type 2 diabetes mellitus with other diabetic kidney complication (principal)
CPT/HCPCS: 82043; 82570

== ENCOUNTER → 2023-09-29 | Outpatient (CLI) | payer OTHER ==
[2023-09-29 15:16] LABS: Hematocrit 43.8 % (37.0-53.0); Hemoglobin 14.3 g/dL (13.5-17.5); Mean Corpuscular HGB 30.1 pg (26.0-34.0); Mean Corpuscular HGB Conc 32.6 g/dL (31.5-36.5); Mean Corpuscular Volume 92 fL (80-100); Mean Platelet Volume 10.1 fL (9.1-12.4); Platelet Count 268 K/mm3 (150-400); RDW Coefficient Variation 13.4 % (11.7-14.2); RDW Standard Deviation 45.1 fL (35.1-46.3); Red Blood Cell Count 4.75 M/mm3 (4.30-5.90); White Blood Cell Count 6.56 K/mm3 (4.00-11.30)
[2023-09-29 15:24] LABS: Alanine Aminotransfer (ALT/SGP 24 U/L (12-78); Albumin, Blood 3.5 g/dL (3.4-5.0); Albumin/Globulin Ratio 0.9 (0.8-1.8); Alk Phos 115 U/L (50-136); Anion Gap 8 mmol/L (3-11); Aspartate Aminotrans (AST/SGOT 23 U/L (12-37); Bilirubin, Total 0.4 mg/dL (0.1-1.0); Blood Urea Nitrogen 11 mg/dL (8-24); CO2, Blood 30 mmol/L (21-32); Calcium, Blood 8.9 mg/dL (8.5-10.1); Chloride, Blood 108 mmol/L (98-108); Cholesterol 157 mg/dL (50-200); Creatinine, Blood 0.74 mg/dL (0.60-1.20); Glomerular Filtration Rate 98 (60-); Glucose, Blood 150 mg/dL (70-99); HDL Cholesterol 39 mg/dL (>39); LDL/HDL RATIO 2.2; Low Density Lipoprotein Chol 86 mg/dL (0-110); Potassium, Blood 4.4 mmol/L (3.5-5.5); Sodium, Blood 142 mmol/L (136-145); Total Protein, Blood 7.5 g/dL (6.4-8.2); Triglycerides 159 mg/dL (30-160); Very Low Density Lipoprot Chol 31 mg/dL (6-32)
== END | disposition home or self-care (01) ==
LOC: LAB SHORT 14:01 → LAB 14:01
PROVIDERS: Internal Medicine
DX: I48.0 Paroxysmal atrial fibrillation (principal); E78.1 Pure hyperglyceridemia; E11.29 Type 2 diabetes mellitus with other diabetic kidney complication
CPT/HCPCS: 80053; 80061; 83036; 85027

== ENCOUNTER → 2024-01-01 | Outpatient (CLI) | payer OTHER ==
[2024-01-01 21:27] LABS: Microalb/Creat Ratio UR, Rand 18.313 mg/g (0.000-30.000); Microalbumin, Random Urine 30.4 mg/L (0.000-20.000)
== END ==
LOC: LAB SHORT 18:25 → LAB 18:25
PROVIDERS: Internal Medicine
DX: N30.00 Acute cystitis without hematuria (principal); E11.29 Type 2 diabetes mellitus with other diabetic kidney complication
CPT/HCPCS: 82043; 82570; 87077; 87086; 87186

== ENCOUNTER 2024-04-07 11:54 | Emergency (ER) | payer OTHER ==
[~2024-04-07] VITALS: Ht 167.6 cm; Wt 95.2 kg
[2024-04-07 12:28] LABS: BASOPHILS ABSOLUTE AUTO 0.03 K/mm3 (0.00-0.23); BASOPHILS PERCENT AUTO 0 % (0-2); EOSINOPHILS ABSOLUTE AUTO 0.25 K/mm3 (0.00-0.68); EOSINOPHILS PERCENT AUTO 3 % (0-6); Hematocrit 39.8 % (37.0-53.0); Hemoglobin 13.4 g/dL (13.5-17.5); IMMATURE GRAN ABSOLUTE AUTO 0.02 K/mm3 (0.00-0.10); IMMATURE GRAN PERCENT AUTO 0 % (0-1); LYMPHOCYTES ABSOLUTE AUTO 1.38 K/mm3 (0.84-5.20); LYMPHOCYTES PERCENT AUTO 15 % (21-46); MONOCYTES PERCENT AUTO 8 % (4-13); Mean Corpuscular HGB 30.4 pg (26.0-34.0); Mean Corpuscular HGB Conc 33.7 g/dL (31.5-36.5); Mean Corpuscular Volume 90 fL (80-100); Mean Platelet Volume 9.7 fL (9.1-12.4); NEUTROPHILS ABSOLUTE AUTO 7.02 K/mm3 (1.96-9.15); NEUTROPHILS PERCENT AUTO 74 % (41-73); Platelet Count 189 K/mm3 (150-400); RDW Coefficient Variation 13.5 % (11.7-14.2); RDW Standard Deviation 45.4 fL (35.1-46.3); Red Blood Cell Count 4.41 M/mm3 (4.30-5.90)
[2024-04-07 12:53] LABS: Albumin, Blood 3.3 g/dL (3.4-5.0); Albumin/Globulin Ratio 0.7 (0.8-1.8); Bilirubin, Total 0.4 mg/dL (0.1-1.0); Bun/Creatinine Ratio 15.9 (12.0-20.0); Calcium, Blood 8.5 mg/dL (8.5-10.1); Creatinine, Blood 1.26 mg/dL (0.60-1.20); Globulin, Blood 4.6 g/dL (2.2-4.0); Potassium, Blood 3.8 mmol/L (3.5-5.5); Total Protein, Blood 7.9 g/dL (6.4-8.2)
[2024-04-07] MEDS ORDERED: OxyCODONE HCL 5 MG TAB PO ONE (15:30)
[2024-04-07 15:37] LABS: CORONAVIRUS COVID-19 AG Negative (NEGATIVE); INFLUENZA A AG Positive (NEGATIVE); INFLUENZA B AG Negative (NEGATIVE)
[2024-04-07] MEDS ORDERED: ONDA4ODT MM (16:06)
[2024-04-07 16:22] VITALS: BP 139/84
== END 2024-04-07 16:22 | disposition home or self-care (01) ==
LOC: ER 11:54
PROVIDERS: Physician Assistant
DX: J10.1 Influenza due to other identified influenza virus with other respiratory manifestations (principal); E11.42 Type 2 diabetes mellitus with diabetic polyneuropathy; Z79.899 Other long term (current) drug therapy; Z79.84 Long term (current) use of oral hypoglycemic drugs; Z79.4 Long term (current) use of insulin
CPT/HCPCS: 71046; 80053; 83880; 84484; 85025; 85379; 87428-QW; 93005; 93010; 99284-25; A9270